=== PATIENT | male | born 1990 | race Two or more races ===

== ENCOUNTER 2021-01-17 03:14 | Emergency (ER) | payer OTHER ==
[~2021-01-17] VITALS: Ht 175.3 cm; Wt 104.3 kg
[2021-01-17] MEDS ORDERED: HYDROcodone-ACET 10/325MG TAB PO ONE (07:00)
[2021-01-17 07:40] VITALS: BP 144/94
== END 2021-01-17 07:52 | disposition home or self-care (01) ==
LOC: ER 03:18 → EEVIPCON 03:18 → ER 07:52
DX: S66.911A Strain of unspecified muscle, fascia and tendon at wrist and hand level, right hand, initial encounter (principal); W22.8XXA Striking against or struck by other objects, initial encounter; Y93.89 Activity, other specified; Y92.89 Other specified places as the place of occurrence of the external cause; Y99.8 Other external cause status
CPT/HCPCS: 73110; 73130